=== PATIENT | female | born 1970 | race African-American/Black ===

== ENCOUNTER 2019-05-15 15:29 | Emergency (ER) | payer BC ==
--- NOTE | 2019-05-15 15:46 | PDOC ---
Rapid Medical Evaluation Time Seen by Provider: 05/15/19 15:43 Medical Evaluation: Allergies Allergy/AdvReac Type Severity Reaction Status Date / Time No Known Drug Allergies Allergy Verified 07/31/13 09:46 05/15/19 15:43 I have performed a brief in-person evaluation of this patient. The patient presents with a chief complaint of: "piece of metal stuck in my hand x 2 months", now having pain to L hand/arm Pertinent physical exam findings: no laceration/bleeding I have ordered the following: x-ray The patient will proceed to the ED for further evaluation. Discharge Disposition - Diagnosis Foreign body - Referrals - Patient Instructions - Post Discharge Activity
[2019-05-15 16:01] VITALS: BMI 24.9
--- NOTE | 2019-05-15 16:54 | PDOC ---
History of Present Illness - General Chief Complaint: Pain Stated Complaint: FOREIGN BODY IN LT HAND Time Seen by Provider: 05/15/19 15:43 - History of Present Illness Initial Comments: 05/15/19 16:52 49-year-old female without comorbidities presents for evaluation of left hand pain which started about 3 days ago she feels she may have a foreign body in her left hand but she has a piece of metal Past History - Past Medical History Allergies/Adverse Reactions: Allergies Allergy/AdvReac Type Severity Reaction Status Date / Time No Known Drug Allergies Allergy Verified 07/31/13 09:46 Home Medications: Ambulatory Orders Acetaminophen [Tylenol] 650 mg PO PRN PRN 04/14/12 Ibuprofen [Motrin -] 600 mg PO Q6H PRN #0 tablet 04/21/12 Multivitamin [Multivitamins] 1 each PO DAILY #0 capsule 04/21/12 Anemia: No Asthma: No Cancer: No Cardiac Disorders: No CVA: No COPD: No CHF: No Dementia: No Diabetes: No GI Disorders: No Disorders: No HTN: No Hypercholesterolemia: No Liver Disease: No Seizures: No Thyroid Disease: No - Surgical History Abdominal Surgery: Yes Appendectomy: No Cardiac Surgery: No Cholecystectomy: No Lung Surgery: No Neurologic Surgery: No Orthopedic Surgery: No - Psycho Social/Smoking Cessation Hx Smoking History: Never smoked Have you smoked in the past 12 months: No Hx Alcohol Use: No Drug/Substance Use Hx: No Substance Use Type: Alcohol Hx Substance Use Treatment: No Review of Systems - Review of Systems Musculoskeletal: Yes: See HPI *Physical Exam - Vital Signs Last Vital Signs Temp Pulse Resp BP Pulse Ox 98.0 F 70 16 118/69 100 05/15/19 15:30 05/15/19 15:30 05/15/19 15:30 05/15/19 15:30 05/15/19 15:30 - Physical Exam 05/15/19 16:53 Left hand skin color and temperature normal range of motion is full in all fingers. FDS and FDP work independently in all fingers. There is tenderness about the flexor tendon of the third and fourth fingers. No pain with passive stretch sausagelike edema or tenderness along the sheath. Neurovascular intact Medical Decision Making - Medical Decision Making 05/15/19 16:53 X-rays of the left hand show no radiopaque foreign body. Follow-up with hand surgery Discharge - Discharge Information Problems reviewed: Yes Clinical Impression/Diagnosis: Hand pain, left Clinical Impression/Diagnosis: (Ruled Out): Foreign body Condition: Stable Disposition: HOME - Admission No - Follow up/Referral Referrals: Dk Quesada MD [Primary Care Provider] - Nash Gerardo MD [Staff Physician] - - Patient Discharge Instructions Additional Instructions: Follow-up with orthopedic hand surgery in 1 to 2 days for further evaluation and treatment options and return to the emergency room should symptoms worsen. - Post Discharge Activity Work/Back to School Note: Back to Work
[2019-05-15 17:37] VITALS: BP 116/62; PULSE 74; TEMP 98.2
== END 2019-05-15 17:07 | disposition home or self-care (01) ==
LOC: JERFT 15:29
DX: M79.642 Pain in left hand (principal)
CPT/HCPCS: 73130-TC-LT-FY; 99282-25

== ENCOUNTER 2022-09-13 14:41 | Emergency (ER) | payer BC ==
[2022-09-13 15:05] VITALS: BP 119/70; PULSE 55; RESP 16; TEMP 98.3; BMI 24.0
== END 2022-09-13 16:36 | disposition home or self-care (01) ==
LOC: FER 14:41
DX: M53.3 Sacrococcygeal disorders, not elsewhere classified (principal); R51.9 Headache, unspecified; R42 Dizziness and giddiness; V00.121A Fall from non-in-line roller-skates, initial encounter; Y93.51 Activity, roller skating (inline) and skateboarding
CPT/HCPCS: 72220-TC-FY; 99283-25